=== PATIENT | male | born 1970 | race Two or more races ===

== ENCOUNTER 2016-03-15 23:21 | Observation (INO) | payer OTHER ==
[2016-03-16] MEDS ORDERED: ASPIRIN 81 MG CHEWABLE TABLETS PO ONE (00:13)
--- NOTE | 2016-03-16 00:13 | PDOC ---
History of Present Illness <Mikala,Beth - Last Filed: 03/16/16 00:27> <Chantell Casey - Last Filed: 03/16/16 01:49> - General Chief Complaint: Chest Pain Stated Complaint: CHEST PAIN Time Seen by Provider: 03/15/16 23:38 - History of Present Illness Initial Comments: 03/16/16 00:23 Patient is a 45 year old male with significant medical hx of HTN who is presenting to the ED with intermittent chest pressure and shortness of breath for one week. Patient reports his symptoms worsen with exertion, specifically when he walks up flights of stairs, and with inhalation. His chest pain radiates to his back and recently began radiating down his left arm. This morning the patient had three episodes of nausea and vomiting. The patient rates his pain 6/10 in severity at this time. Surgical Hx: Hernia repair, adenoids removed Social Hx: Never smoked. 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 (Beth Bach) Past History <MikalaBeth - Last Filed: 03/16/16 00:27> - Past Medical History HTN: Yes - Immunization History Immunization Up to Date: Yes - Psycho/Social/Smoking Cessation Hx Anxiety: No Suicidal Ideation: No Smoking History: Never smoked Number of Cigarettes Smoked Daily: 0 Information on smoking cessation initiated: No Hx Alcohol Use: No Drug/Substance Use Hx: No Substance Use Type: None <Chantell Casey - Last Filed: 03/16/16 01:49> - Past Medical History Allergies/Adverse Reactions: Allergies Allergy/AdvReac Type Severity Reaction Status Date / Time No Known Allergies Allergy Verified 03/15/16 23:23 Home Medications: Ambulatory Orders Ibuprofen [Motrin -] 600 mg PO TID #21 tablet 05/06/14 Review of Systems <Beth Bach - Last Filed: 03/16/16 00:27> <Chantell Casey - Last Filed: 03/16/16 01:49> - Review of Systems Comments:: 03/16/16 00:23 CONSTITUTIONAL: Absent: fever, chills, diaphoresis, generalized weakness, malaise, loss of appetite HEENT: Absent: rhinorrhea, nasal congestion, throat pain, throat swelling, difficulty swallowing, mouth swelling, ear pain, eye pain, visual changes CARDIOVASCULAR: Present: chest pain Absent: syncope, palpitations, irregular heart rate, lightheadedness, peripheral edema RESPIRATORY: Present: shortness of breath Absent: cough, dyspnea with exertion, orthopnea, wheezing, stridor, hemoptysis GASTROINTESTINAL: Present: nausea, vomiting Absent: abdominal pain, abdominal distension, diarrhea, constipation, melena, hematochezia GENITOURINARY: Absent: dysuria, frequency, urgency, hesitancy, hematuria, flank pain, genital pain MUSCULOSKELETAL: Absent: myalgia, arthralgia, joint swelling SKIN: Absent: rash, itching, pallor HEMATOLOGIC/IMMUNOLOGIC: Absent: easy bleeding, easy bruising, lymphadenopathy, frequent infections ENDOCRINE: Absent: unexplained weight gain, unexplained weight loss, heat intolerance, cold intolerance NEUROLOGIC: Absent: headache, focal weakness or paresthesia, dizziness, unsteady gait, seizure, mental status changes, bladder or bowel incontinence. PSYCHIATRIC: Absent: anxiety, depression, suicidal or homicidal ideation, hallucinations (Beth Bach) *Physical Exam <Beth Bach - Last Filed: 03/16/16 00:27> <Chantell Casey - Last Filed: 03/16/16 01:49> - Vital Signs Last Vital Signs Temp Pulse Resp BP Pulse Ox 97.9 F 62 14 129/66 97 03/15/16 23:24 03/15/16 23:24 03/15/16 23:24 03/15/16 23:24 03/15/16 23:24 - Physical Exam Comments: 03/16/16 00:25 GENERAL: Well developed, well nourished. Awake and alert. No acute distress. HEENT: Normocephalic, atraumatic. PERRLA, EOMI. No conjunctival pallor. Sclera are non- icteric. Moist mucous membranes. Oropharynx is clear. NECK: Supple. Full ROM. No JVD. Carotid pulses 2+ and symmetric, without bruits. No thyromegaly. No lymphadenopathy. CARDIOVASCULAR: Regular rate and rhythm. No murmurs, rubs, or gallops. Distal pulses are 2+ and symmetric. PULMONARY: No evidence of respiratory distress. Lungs clear to auscultation bilaterally. No wheezing, rales or rhonchi. ABDOMINAL: Soft. Non-tender. Non-distended. No rebound or guarding. No organomegaly. Normoactive bowel sounds. MUSCULOSKELETAL: Normal range of motion at all joints. No bony deformities or tenderness. No CVA tenderness. EXTREMITIES: No cyanosis. No clubbing. No edema. No calf tenderness. SKIN: Warm and dry. Normal capillary refill. No rashes. No jaundice. NEUROLOGICAL: Alert, awake, appropriate. Cranial nerves 2-12 intact. Normal speech. Gait is normal without ataxia. PSYCHIATRIC: Cooperative. Good eye contact. Appropriate mood and affect. (Beth Bach) Heart Score/ECG Review <Beth Bach - Last Filed: 03/16/16 00:27> - History History: Slightly suspicious - Electrocardiogram EKG: Normal - Age Age: </= 45 - Risk Factors Risk Factors Heart Score: Yes Hx Hypertension Based on the list above the patient has:: 1-2 risk factors - Troponin Troponin: </= normal limit - Score Heart Score - Total: 1 #1 Compared to previous ECG there are: Previous ECG unavail - ECG Intrepretation Rhythm: Regular Rhythm - ECG Impressions Normal ECG: Yes Bradycardia: Yes Torsades lucero Pointes: No WPW: No <Chantell Casey - Last Filed: 03/16/16 01:49> #1 03/16/16 00:27 Sinus bradycardia at 52 bpm Otherwise normal ECG (Beth Bach) ED Treatment Course - LABORATORY CBC & Chemistry Diagram: 03/16/16 00:20 03/16/16 00:20 <MikalaRehanBeth - Last Filed: 03/16/16 00:27> - LABORATORY CBC & Chemistry Diagram: 03/16/16 00:20 03/16/16 00:20 <Chantell Casey - Last Filed: 03/16/16 01:49> - ADDITIONAL ORDERS Additional order review: Laboratory Results 03/16/16 03/16/16 03/16/16 00:20 00:20 00:20 INR 0.99 Sodium 143 Potassium 3.9 Chloride 106 Carbon Dioxide 27 Anion Gap 10 BUN 16 Creatinine 1.1 Creat Clearance w eGFR > 60 Random Glucose 96 Calcium 8.6 Magnesium 2.1 Total Bilirubin 0.4 AST 14 L ALT 26 Alkaline Phosphatase 60 Creatine Kinase 328 H Creatine Kinase Index 0.6 CK-MB (CK-2) 2.046 CK-MB (CK-2) Rel Index Cancelled Troponin I < 0.02 Total Protein 6.7 Albumin 3.7 03/16/16 00:20 RBC 4.67 MCV 91.2 MCHC 34.1 RDW 13.2 MPV 11.0 Neutrophils % 43.4 Lymphocytes % 41.4 H Monocytes % 12.4 H Eosinophils % 2.0 Basophils % 0.8 - RADIOLOGY Radiology Studies Ordered: Category Date Time Status CHEST X-RAY PORTABLE* [RAD] Stat Radiology 03/16/16 00:17 Taken - Medications Given in the ED: ED Medications Discontinued Medications Generic Name Dose Route Start Last Admin Trade Name Steveq PRN Reason Stop Dose Admin Aspirin 162 mg 03/16/16 00:13 03/16/16 00:30 Asa - PO 03/16/16 00:14 162 mg ONCE ONE Administration Medical Decision Making <Beth Bach - Last Filed: 03/16/16 00:27> <Chantell Casey - Last Filed: 03/16/16 01:49> - Medical Decision Making 03/16/16 01:39 I've-year-old male with past medical history of hypertension, has been experiencing some chest pain recently, but today, much worse with numbness going down his left arm and was associated with palpitations and vomiting. 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, is , does not smoke tobacco EKG is sinus bradycardia at 52 bpm, inverted T waves in lead 3 First cardiac enzyme is negative (Chantell Casey) *DC/Admit/Observation/Transfer <Beth Bach - Last Filed: 03/16/16 00:27> - Discharge Dispostion Admit: Yes <Chantell Casey - Last Filed: 03/16/16 01:49> Diagnosis at time of Disposition: Chest pain Qualifiers: Chest pain type: precordial chest pain Qualified Code(s): R07.2 - Precordial pain - Referrals Referrals: STAFF,NOT ON [Primary Care Provider] - - Attestations Scribe Attestion: 03/16/16 00:25 Documentation prepared by Beth Bach, acting as manager medical affairs for Chantell Casey MD. (Beth Bach)
[2016-03-16] MEDS ORDERED: ASPIRIN 81 MG CHEWABLE TABLETS ONE (00:21)
[2016-03-16 00:40] LABS: BASOPHIL 0.8 % (0-2.0); MCH 31.1 pg (25.7-33.7); MCHC 34.1 g/dl (32.0-35.9); MEAN CELL VOLUME 91.2 fl (80-96); NEUTROPHILS 43.4 % (42.8-82.8); PLATELET COUNT 130 K/MM3 (134-434); RDW 13.2 % (11.9-15.9); WHITE BLOOD COUNT 5.7 K/mm3 (4.0-10.0)
[2016-03-16 01:06] LABS: ALBUMIN 3.7 g/dl (3.4-5.0); ANION GAP 10 (8-16); BILIRUBIN,TOTAL 0.4 mg/dL (0.2-1.0); CALCIUM 8.6 mg/dL (8.5-10.1); CO2 27 mmol/L (21-32); CREATININE 1.1 mg/dL (0.7-1.3); GLUCOSE,RANDOM 96 mg/dL (74-106); MAGNESIUM 2.1 mg/dL (1.8-2.4); SGOT/AST 14 U/L (15-37); SGPT/ALT 26 U/L (12-78); TOT PROT 6.7 g/dl (6.4-8.2)
[2016-03-16 01:09] LABS: ALK PHOS 60 U/L (45-117); TROPONIN I < 0.02 ng/ml (0.00-0.05)
[2016-03-16 01:10] LABS: INR 0.99 (0.82-1.09); PROTHROMBIN TIME (PATIENT) 10.9 SEC (9.98-11.88)
--- NOTE | 2016-03-16 01:50 | PN ---
Teaching Attending Note Name of Resident: Marianne Siddiqui ATTENDING PHYSICIAN STATEMENT I saw and evaluated the patient. I reviewed the resident's note and discussed the case with the resident. I agree with the resident's findings and plan as documented. SUBJECTIVE: 45 M with hx of HTN who presents with chest pain/palpitations for past 3 days and l. arm pain. Also ass. SOB with Palpitations. States that he has had intermittent chest pain, radiating to his left arm. No current chest pain, pressure, or shortness of breath. Notes Palpitations and SOB also happens when he is at rest. No recent fevers, chills or n/v/d. OBJECTIVE: Physical: VS: Vital Signs Period Temp Pulse Resp BP Sys/Regalado Pulse Ox Last 24 Hr 97.9 F 62 14 129/66 97 GEN: Middle Aged Male resting in bed in NAD HEENT:NCAT, PERRL CARD: RRR S1, S2 RESP:CTAB ABD: BSx4 EXT: - C/C/E CBCD WBC 5.7 K/mm3 (4.0-10.0) 03/16/16 00:20 RBC 4.67 M/mm3 (4.00-5.60) 03/16/16 00:20 Hgb 14.5 GM/dL (11.7-16.9) 03/16/16 00:20 Hct 42.6 % (35.4-49) 03/16/16 00:20 MCV 91.2 fl (80-96) 03/16/16 00:20 MCHC 34.1 g/dl (32.0-35.9) 03/16/16 00:20 RDW 13.2 % (11.9-15.9) 03/16/16 00:20 Plt Count 130 K/MM3 (134-434) L 03/16/16 00:20 MPV 11.0 fl (7.5-11.1) 03/16/16 00:20 CMP Sodium 143 mmol/L (136-145) 03/16/16 00:20 Potassium 3.9 mmol/L (3.5-5.1) 03/16/16 00:20 Chloride 106 mmol/L (98-107) 03/16/16 00:20 Carbon Dioxide 27 mmol/L (21-32) 03/16/16 00:20 Anion Gap 10 (8-16) 03/16/16 00:20 BUN 16 mg/dL (7-18) 03/16/16 00:20 Creatinine 1.1 mg/dL (0.7-1.3) 03/16/16 00:20 Creat Clearance w eGFR > 60 (>60) 03/16/16 00:20 Random Glucose 96 mg/dL (74-106) 03/16/16 00:20 Calcium 8.6 mg/dL (8.5-10.1) 03/16/16 00:20 Total Bilirubin 0.4 mg/dL (0.2-1.0) 03/16/16 00:20 AST 14 U/L (15-37) L 03/16/16 00:20 ALT 26 U/L (12-78) 03/16/16 00:20 Alkaline Phosphatase 60 U/L (45-117) 03/16/16 00:20 Total Protein 6.7 g/dl (6.4-8.2) 03/16/16 00:20 Albumin 3.7 g/dl (3.4-5.0) 03/16/16 00:20 CARDIAC ENZYMES Creatine Kinase 328 IU/L (39-308) H 03/16/16 00:20 Troponin I < 0.02 ng/ml (0.00-0.05) 03/16/16 00:20 Ambulatory Orders Losartan/Hydrochlorothiazide [Losartan-Hctz 50-12.5 mg Tab] 1 each PO DAILY EKG: S OTTO, No acute St-T changes CXR: Mild Cardiomegaly, increased Vascularization ASSESSMENT AND PLAN: 45 M with pmhx of HTN presents with Chest Pain 1.) Chest Pain - Heart Score 3 - Trend Trop/EKG - ASA - 02 2L NC - Nitro/Morphine prn CP 2.) Palpitations/SOB - Chk. Echo 2.) HTN - C/W Home Meds 3.) Dvt Ppx - Ambulate- Low Risk Placr in Obs-Tele
--- NOTE | 2016-03-16 01:50 | HP ---
CHIEF COMPLAINT: Palpitations with shortness of breath PCP: Not on Staff HISTORY OF PRESENT ILLNESS: Patient is a 45 year old male with a PMHx of HTN who presented today complaining of palpitations and midsternal chest pain/pressure that began three days ago and worsened in the last 24 hours. Patient reports the palpitations are there most of the time and worsens when he is laying down associated with shortness of breath. Patient states the shortness of breath only happens when he is having palpitations. Patient also reports the midsternal chest pain is a more of pressure like feeling that is constant and occurs a few times a day radiating to the left arm. Patient also reports he had one episode of nonbloody nonbilious vomiting today when he was having palpitations, which prompted this ED visit. Patient denies any anxiety and severe stress factors that might elicit these symptoms. Otherwise, patient denies fever, chills, abdominal pain , dizziness, headache, dysuria, hematuria. ER course was notable for: (1) ASA 161mg (2) Chest X-ray (3) EKG Recent Travel: Denies PAST MEDICAL HISTORY: HTN PAST SURGICAL HISTORY: Tonsillectomy, Hernia repair Social History: Smoking: Denies Alcohol: Occasionally Drugs: Drugs Family History: Mother- Diabetes, HTN, and Renal Failure Allergies: No Known Allergies Allergy (Verified 03/15/16 23:23) HOME MEDICATIONS: Medication Instructions Recorded Losartan/Hydrochlorothiazide 1 each PO DAILY 03/16/16 [Losartan-Hctz 50-12.5 mg Tab] REVIEW OF SYSTEMS CONSTITUTIONAL: Absent: fever, chills, diaphoresis, generalized weakness, malaise, loss of appetite, weight change HEENT: Absent: rhinorrhea, nasal congestion, throat pain, throat swelling, difficulty swallowing, mouth swelling, ear pain, eye pain, visual changes CARDIOVASCULAR: palpitations Absent: chest pain, syncope, irregular heart rate, lightheadedness, peripheral edema RESPIRATORY: shortness of breath Absent: cough, dyspnea with exertion, orthopnea, wheezing, stridor, hemoptysis GASTROINTESTINAL: vomiting Absent: abdominal pain, abdominal distension, nausea, diarrhea, constipation, melena, hematochezia GENITOURINARY: Absent: dysuria, frequency, urgency, hesitancy, hematuria, flank pain, genital pain MUSCULOSKELETAL: Left arm weakness Absent: myalgia, arthralgia, joint swelling, back pain, neck pain SKIN: Absent: rash, itching, pallor HEMATOLOGIC/IMMUNOLOGIC: Absent: easy bleeding, easy bruising, lymphadenopathy, frequent infections ENDOCRINE: Absent: unexplained weight gain, unexplained weight loss, heat intolerance, cold intolerance NEUROLOGIC: Absent: headache, focal weakness or paresthesias, dizziness, unsteady gait, seizure, mental status changes, bladder or bowel incontinence PSYCHIATRIC: Absent: anxiety, depression, suicidal or homicidal ideation, hallucinations. PHYSICAL EXAMINATION Vital Signs - 24 hr 03/15/16 23:24 Temperature 97.9 F Pulse Rate 62 Respiratory 14 Rate Blood Pressure 129/66 O2 Sat by Pulse 97 Oximetry (%) GENERAL: Awake, alert, and fully oriented, in no acute distress. HEAD: Normal with no signs of trauma. EYES: Pupils equal, round and reactive to light, extraocular movements intact, sclera anicteric, conjunctiva clear. No lid lag. EARS, NOSE, THROAT: Ears normal, nares patent, oropharynx clear without exudates. Moist mucous membranes. NECK: Normal range of motion, supple without lymphadenopathy, JVD, or masses. LUNGS: Breath sounds equal, clear to auscultation bilaterally. No wheezes, and no crackles. No accessory muscle use. HEART: Bradycardia with regular rhythm, normal S1 and S2 without murmur, rub or gallop. ABDOMEN: Soft, nontender, not distended, normoactive bowel sounds, no guarding, no rebound, no masses. No hepatomegaly or splenomegaly. MUSCULOSKELETAL: Normal range of motion at all joints. No bony deformities or tenderness. No CVA tenderness. EXTREMITIES: No calf tenderness. No peripheral edema. NEUROLOGICAL: No focal deficits. Normal speech. PSYCHIATRIC: Cooperative. Good eye contact. Appropriate mood and affect. SKIN: Warm, dry, normal turgor, no rashes or lesions noted. Laboratory Results - last 24 hr 03/16/16 03/16/16 03/16/16 00:20 00:20 00:20 WBC 5.7 RBC 4.67 Hgb 14.5 Hct 42.6 MCV 91.2 MCHC 34.1 RDW 13.2 Plt Count 130 L MPV 11.0 Neutrophils % 43.4 Lymphocytes % 41.4 H Monocytes % 12.4 H Eosinophils % 2.0 Basophils % 0.8 INR 0.99 Sodium 143 Potassium 3.9 Chloride 106 Carbon Dioxide 27 Anion Gap 10 BUN 16 Creatinine 1.1 Creat Clearance w eGFR > 60 Random Glucose 96 Calcium 8.6 Magnesium 2.1 Total Bilirubin 0.4 AST 14 L ALT 26 Alkaline Phosphatase 60 Creatine Kinase 328 H Creatine Kinase Index 0.6 CK-MB (CK-2) 2.046 CK-MB (CK-2) Rel Index Troponin I < 0.02 Total Protein 6.7 Albumin 3.7 03/16/16 00:20 WBC RBC Hgb Hct MCV MCHC RDW Plt Count MPV Neutrophils % Lymphocytes % Monocytes % Eosinophils % Basophils % INR Sodium Potassium Chloride Carbon Dioxide Anion Gap BUN Creatinine Creat Clearance w eGFR Random Glucose Calcium Magnesium Total Bilirubin AST ALT Alkaline Phosphatase Creatine Kinase Creatine Kinase Index CK-MB (CK-2) CK-MB (CK-2) Rel Index Cancelled Troponin I Total Protein Albumin EKG: Sinus Bradycardia @52 BPM, (-)ST-T changes Chest X-ray: Mild cardiomegaly with increased pulmonary markings. ASSESSMENT/PLAN: Patient is a 45 year old male with a PMHx of HTN who presents for palpitations, shortness of breath, and left arm weakness. Patient found to have bradycardia on EKG and slightly elevated CK level. Patient admitted to telemetry for further monitoring and management. Chest Pain -Heart score: 3 -Elevated CK. negative troponin x1. Repeat cardiac profile in the morning -ASA 81 daily -Continue 2L 02 -Cardiac monitoring -ECHO ordered -Lipid panel ordered -Morphine and Nitroglycerin for pain Palpitations with Shortness of Breath -EKG revealed bradycardia -TSH ordered -Repeat EKG -ECHO ordered -Continuous cardiac monitoring HTN -Continue with Losartan 50/12.5mg daily -Continue to monitor BP F/E/N -On no fluids -Electrolytes wnl -Sodium controlled diet Prophylaxis -Low risk, patient is able to ambulate. SCD's DVT -No GI needed Disposition -Full code -Admitted to Telemetry. Will repeat troponins. Visit type - Emergency Visit Emergency Visit: Yes ED Registration Date: 03/16/16 Care time: The patient presented to the Emergency Department on the above date and was hospitalized for further evaluation of their emergent condition. - New Patient This patient is new to me today: Yes Date on this admission: 03/16/16 - Critical Care Critical Care patient: No
[2016-03-16 07:11] LABS: CHOLESTEROL 186 mg/dL (50-200); LDL CHOLESTEROL (ONLY SJRH) 126 mg/dL (5-100)
[2016-03-16 07:13] LABS: TROPONIN I < 0.02 ng/ml (0.00-0.05)
[2016-03-16] MEDS ORDERED: LOSARTAN 50MG/HCTZ 12.5MG 1 TAB (FP) PO SCH (10:00)
[2016-03-16] MEDS ORDERED: ASPIRIN 81 MG CHEWABLE TABLETS PO SCH (10:00)
[2016-03-16 10:45] VITALS: BMI 34.7
--- NOTE | 2016-03-16 13:13 | PN ---
Teaching Attending Note Name of Resident: Rocio Scott ATTENDING PHYSICIAN STATEMENT I saw and evaluated the patient. I reviewed the resident's note and discussed the case with the resident. I agree with the resident's findings and plan as documented. SUBJECTIVE: sifter operator phone was used . no fever or chills, no fever , no CP or palpitations at this time. reports havinf papitaitons on and off , on exertionand at rest, if exertion is stopped he will fell better. they last fro 2 min . Reports SOB and L upper arm with these episodes , also a feeling of fear. 1 week before presentation , he never had CP or palpitations . He had stress test 1.5 yr ago before hernia sx . OBJECTIVE: NAD , AAOx3 CV: RRR, no MRG Lunsg : CTAB ext : no edema R pulse 2+ b/l EKG : sinus rhythm, with TWI in inferior leads , with no prior to compare to . no ST changes . NSR, NL axis ASSESSMENT AND PLAN: 45 y/o man with no significant PMH who presneted with 1 week history of recurrent palpitations, L arm and chest pain and SOB . 1- Symptoms of CP, Arm pain, palpitations: in DDX include arrhythmias and anxiety. The fact that he has TWI in inferior leads and L arm pain , ACS needs to be r/o . we have no Previous EKG to compare to. trop x 2 NL . Stable VS - Contact his medical record librarian , Dr. Barney , to obtain previous EKG and Stress reports . - Place on tele - Echo pending - Repeat EKG and third trop - If previous stress test is NL and previous EKG shows same inferior TWI , hold off any stress test. Otherwise , will order a stress test - will need out pt holter placed plan was d/w pt
[2016-03-16 14:19] LABS: TROPONIN I < 0.02 ng/ml (0.00-0.05)
--- NOTE | 2016-03-16 14:43 | DS ---
Physical Exam: SUBJECTIVE: Patient seen and examined today in AM. He is complaining of mild SOB. Denies chest pain, cough, palpitations, abdominal pain, N/V, diarrhea, numbness, paresthesias in LUE. OBJECTIVE: Vital Signs Period Temp Pulse Resp BP Sys/Regalado Pulse Ox Last 24 Hr 97.8 F-98 F 52-55 18-18 133-138/86-86 99-99 PHYSICAL EXAM GENERAL: The patient is awake, alert, and fully oriented, in no acute distress. HEAD: Normal with no signs of trauma. EYES: PERRL, extraocular movements intact, sclera anicteric, conjunctiva clear. ENT: oropharynx clear without exudates, moist mucous membranes. NECK: Trachea midline, full range of motion, supple. LUNGS: Breath sounds equal, clear to auscultation bilaterally, no wheezes, no crackles, no accessory muscle use. HEART: Regular rate and rhythm, S1, S2 without murmur, rub or gallop. ABDOMEN: Soft, nontender, nondistended, normoactive bowel sounds, no guarding, no rebound, no hepatosplenomegaly, no masses. EXTREMITIES: warm, well-perfused, no edema. NEUROLOGICAL: Cranial nerves II through XII grossly intact. Normal speech, gait not observed. PSYCH: Normal mood, normal affect. SKIN: Warm, dry, normal turgor, no rashes or lesions noted. LABS Laboratory Results - last 24 hr 03/16/16 03/16/16 03/16/16 06:25 06:25 06:25 Creatine Kinase 255 D CK-MB (CK-2) Rel Index Cancelled Troponin I < 0.02 Triglycerides 131 Cholesterol 186 Total LDL Cholesterol 126 H HDL Cholesterol 53 TSH 1.04 03/16/16 13:37 Creatine Kinase 230 CK-MB (CK-2) Rel Index Troponin I < 0.02 Triglycerides Cholesterol Total LDL Cholesterol HDL Cholesterol TSH HOSPITAL COURSE: Date of Admission:03/16/16 Date of Discharge: 03/16/16 Minutes to complete discharge: 45 Discharge Summary Reason For Visit: CHEST PAIN Current Active Problems Chest pain (Acute) Hospital Course: Patient is a 45 year old male with a PMHx of HTN who presented today complaining of left arm pain, SOB and palpitations that began three days ago and worsened in the last 24 hours.The patient reports the palpitations are associated with SOB and being scared. He has several episodes a day lasting about a minute. Patient also reports he had one episode of nonbloody nonbilious vomiting today when he was having palpitations, which prompted this ED visit. Patient denies any anxiety and severe stress factors that might elicit these symptoms. Otherwise, patient denies fever, chills, chest pain, abdominal pain, dizziness, headache, dysuria, LOC, balance problems, problems with vision, sensation changes in LUE, numbness and paresthesias. Hospital course; The pt was placed on observation for left upper extremity pain , palpitations, SOB r/o ACS. We trended his troponinsx3. The results were negative. His CK was elevated, next one was nl, TSH nl. His CXR was nl and EKG showed sinus bradycardia, TWI in inferior leads. We started Aspirin, Oxygen Supplementation. Ordered ECHO, lipid panel, cardiac monitoring, Morphine and NTG for pain. We called his Rivet Maker, Dr Jackson Vera and recommend to visit him tomorrow for f/u. We also recommend Holter monitoring as outpatient. Condition: Improved - Instructions Diet, Activity, Other Instructions: Please see your PCP in a week. Visit Dr. Paz tomorrow. YOu might need HOlter monitor placed Take your medications everyday. If you have chest pain, palpitations, dizziness, loss of consciousness, bleeding come to Emergency Room as soon as possible. Referrals: STAFF,NOT ON [Primary Care Provider] - 1 Week (Andrews Shaffer MD [phone]) Disposition: HOME - Home Medications Comprehensive Discharge Medication List: Ambulatory Orders Losartan/Hydrochlorothiazide [Losartan-Hctz 50-12.5 mg Tab] 1 each PO DAILY Problem List - Problems (1) Pain In Left Arm Code(s): M79.602 - PAIN IN LEFT ARM (2) Shortness of breath Code(s): R06.02 - SHORTNESS OF BREATH (3) Palpitations Code(s): R00.2 - PALPITATIONS (4) Hypertension Code(s): I10 - ESSENTIAL (PRIMARY) HYPERTENSION This patient is new to me today: Yes Date on this admission: 03/16/16 Emergency Visit: Yes ED Registration Date: 03/16/16 Care time: The patient presented to the Emergency Department on the above date and was hospitalized for further evaluation of their emergent condition. Critical Care patient: No - Discharge Referral Referred to [facility] No
[2016-03-16 17:05] VITALS: BP 121/89; PULSE 83; TEMP 98.4
--- NOTE | 2016-03-16 23:10 | EKG ---
Test Reason : Blood Pressure : / mmHG Vent. Rate : 067 BPM Atrial Rate : 067 BPM P-R Int : 178 ms QRS Dur : 092 ms QT Int : 400 ms P-R-T Axes : 036 025 008 degrees QTc Int : 422 ms NORMAL SINUS RHYTHM WITH SINUS ARRHYTHMIA NORMAL ECG WHEN COMPARED WITH ECG OF 16-MAR-2016 00:24, NO SIGNIFICANT CHANGE WAS FOUND Confirmed by DANNY NELSON MD ([id number]) on 03/16/2016 11:10:21 PM Referred By: Confirmed By:DANNY NELSON MD
--- NOTE | 2016-03-16 23:20 | EKG ---
Test Reason : Blood Pressure : / mmHG Vent. Rate : 052 BPM Atrial Rate : 052 BPM P-R Int : 184 ms QRS Dur : 090 ms QT Int : 422 ms P-R-T Axes : 036 020 001 degrees QTc Int : 392 ms SINUS BRADYCARDIA OTHERWISE NORMAL ECG NO PREVIOUS ECGS AVAILABLE Confirmed by DANNY NELSON MD ([id number]) on 03/16/2016 11:20:08 PM Referred By: Confirmed By:DANNY NELSON MD
== END 2016-03-16 17:00 | disposition home or self-care (01) ==
LOC: JER 23:21 → JERBED 03-16 01:50
PROVIDERS: ADMIT Internal Medicine; ATTEND Internal Medicine
DX: R07.89 Other chest pain (principal); I10 Essential (primary) hypertension; M79.602 Pain in left arm; R00.2 Palpitations; R00.1 Bradycardia, unspecified
CPT/HCPCS: 36415; 71010-TC; 80053; 80061; 82550; 82553; 83721; 83735; 84443; 84484; 85025; 85610; 93005; 93010; 93306-TC; 99285-25; G0378

== ENCOUNTER 2017-12-06 15:31 | Emergency (ER) | payer OTHER ==
[2017-12-06] MEDS ORDERED: ONDANSETRON *ODT* 4 MG TABLET SL ONE (15:47)
[2017-12-06 15:49] VITALS: BMI 35.5
--- NOTE | 2017-12-06 15:52 | PDOC ---
Rapid Medical Evaluation Chief Complaint: Lightheaded Time Seen by Provider: 12/06/17 15:49 Medical Evaluation: Allergies Allergy/AdvReac Type Severity Reaction Status Date / Time shellfish derived Allergy Severe Swelling Verified 12/06/17 15:39 No Known Drug Allergies Allergy Verified 03/16/16 07:35 12/06/17 15:49 I have performed a brief in-person evaluation of this patient. The patient presents with a chief complaint of: dizziness , nausea, and MAYEN s/p fall down stairs hitting back of head. no LOC Pertinent physical exam findings: moderate swelling to occiput of head. A&O x 3. no open wound I have ordered the following: zofran. head CT w/o contrast The patient will proceed to the ED for further evaluation. Discharge Disposition - Diagnosis Head injury Qualifiers: Encounter type: initial encounter Qualified Code(s): S09.90XA - Unspecified injury of head, initial encounter - Referrals - Patient Instructions - Post Discharge Activity
[2017-12-06] MEDS ORDERED: ONDANSETRON *ODT* 4 MG TABLET ONE (16:05)
--- NOTE | 2017-12-06 16:16 | PDOC ---
History of Present Illness - General Chief Complaint: Lightheaded Stated Complaint: Headache Time Seen by Provider: 12/06/17 15:49 History Source: Patient Exam Limitations: No Limitations - History of Present Illness Initial Comments: 12/06/17 16:01 46-year-old male with history of hypertension presents to the ED but complaints of closed head injury. Patient states was walking up steps when he missed the last step causing to fall backwards down approximately 9 steps. Patient states had no LOC was ample toward the scene but now complaining of bump to the back of his right had along throbbing discomfort to the area. Patient also complaining of mild nausea without visual changes, neck pain, chest pain, shortness of breath, or dizziness Occurred: reports: just prior to arrival Severity: reports: mild Pain Location: reports: head Method of Injury: Yes: direct blow, fall Modifying Factors: improves with: None Loss of Consciousness: no loss of consciousness Associated Symptoms (Fall): headache, nausea/vomiting (nausea) Past History - Travel Traveled outside of the country in the last 30 days: No - Past Medical History Allergies/Adverse Reactions: Allergies Allergy/AdvReac Type Severity Reaction Status Date / Time shellfish derived Allergy Severe Swelling Verified 12/06/17 15:39 No Known Drug Allergies Allergy Verified 03/16/16 07:35 Home Medications: Ambulatory Orders Losartan/Hydrochlorothiazide [Losartan-Hctz 50-12.5 mg Tab] 1 each PO DAILY COPD: No HTN: Yes - Immunization History Immunization Up to Date: Yes - Suicide/Smoking/Psychosocial Hx Smoking History: Never smoked Number of Cigarettes Smoked Daily: 0 Hx Alcohol Use: No Drug/Substance Use Hx: No Substance Use Type: None Patient Lives Alone: No Lives with/in: spouse/SO Review of Systems - Review of Systems Able to Perform ROS?: Yes Constitutional: No: Symptoms Reported HEENTM: No: Symptoms Reported Respiratory: No: Symptoms reported Cardiac (ROS): No: Symptoms Reported ABD/GI: Yes: Nausea Musculoskeletal: No: Symptoms Reported Integumentary: Yes: Lumps Neurological: Yes: Headache. No: Weakness, Dizziness Hematologic/Lymphatic: No: Symptoms Reported *Physical Exam - Vital Signs Last Vital Signs Temp Pulse Resp BP Pulse Ox 98.6 F 69 20 121/69 85 L 12/06/17 15:39 12/06/17 15:39 12/06/17 15:39 12/06/17 15:39 12/06/17 15:39 - Physical Exam General Appearance: Yes: Nourished, Appropriately Dressed. No: Apparent Distress HEENT: positive: EOMI, DELGADO, TMs Normal ( no hemotympanum) Neck: positive: Supple. negative: Decreased range of motion, Tender midline Respiratory/Chest: positive: Lungs Clear, Normal Breath Sounds. negative: Chest Tender, Respiratory Distress, Accessory Muscle Use Cardiovascular: positive: Regular Rhythm, Regular Rate. negative: Murmur Gastrointestinal/Abdominal: positive: Soft. negative: Tenderness Extremity: positive: Normal Capillary Refill Integumentary: positive: Normal Color, Warm, Swelling (right occipital hematoma) Neurologic: positive: sawyer cork slabs II-XII NML intact, Normal Mood/Affect, Motor Strength 5/5 (ambulatory). negative: Sensory Deficit Heart Score/ECG Review - ECG Intrepretation Rhythm: Regular Rhythm (rate 85. sinus rhythm with PVC) Medical Decision Making - Medical Decision Making 12/06/17 16:06 chief complaint: Closed head injury down 9 steps now with nausea and headache. Exam: Noted soft tender hematoma to the right occipital, no cervical tenderness Plan: EKG, Zofran and head CT 12/06/17 16:48 Patient states any better after receiving Zofran complaining of headache. Patient offered Tylenol. Head CT negative for acute pathology. Will give patient concussion precautions *DC/Admit/Observation/Transfer Diagnosis at time of Disposition: Head injury Qualifiers: Encounter type: initial encounter Qualified Code(s): S09.90XA - Unspecified injury of head, initial encounter - Discharge Dispostion Disposition: HOME Condition at time of disposition: Good - Referrals - Patient Instructions Printed Discharge Instructions: DI for Closed Head Injury, DI for Concussion Additional Instructions: Take Tylenol 975 every 8 hours for headache. If you develop difficulty ambulating, on coordinated movements, projectile vomiting visual changes, or weakness, please return to the ED immediately. please otherwise read over instructions on concussion to avoid certain activities that may cause more harm over the next week - Post Discharge Activity
[2017-12-06] MEDS ORDERED: ACETAMINOPHEN 500 MG TABLET (FP) PO ONE (16:52)
[2017-12-06] MEDS ORDERED: ACETAMINOPHEN 325 MG TABLET (FP) ONE (16:57)
[2017-12-06 17:07] VITALS: BP 107/66; PULSE 73; TEMP 97.6
--- NOTE | 2017-12-07 15:19 | EKG ---
Test Reason : Blood Pressure : / mmHG Vent. Rate : 085 BPM Atrial Rate : 070 BPM P-R Int : 156 ms QRS Dur : 092 ms QT Int : 382 ms P-R-T Axes : 033 024 023 degrees QTc Int : 454 ms SINUS RHYTHM WITH FREQUENT PREMATURE VENTRICULAR COMPLEXES NONSPECIFIC T WAVE ABNORMALITY ABNORMAL ECG WHEN COMPARED WITH ECG OF 16-MAR-2016 15:24, PREMATURE VENTRICULAR COMPLEXES ARE NOW PRESENT NONSPECIFIC T WAVE ABNORMALITY NOW EVIDENT IN LATERAL LEADS Confirmed by ANEL ROSS, PHOEBE ([id number]) on 12/07/2017 3:19:20 PM Referred By: Confirmed By:PHOEBE TAM MD
== END 2017-12-06 17:08 | disposition home or self-care (01) ==
LOC: JER 15:31
DX: S00.83XA Contusion of other part of head, initial encounter (principal); W10.8XXA Fall (on) (from) other stairs and steps, initial encounter; Y93.89 Activity, other specified; Y92.89 Other specified places as the place of occurrence of the external cause; Y99.8 Other external cause status; I10 Essential (primary) hypertension
CPT/HCPCS: 70450-TC; 93005; 93010; 99283-25; Q0162

== ENCOUNTER 2020-10-29 19:41 | Emergency (ER) | payer OTHER ==
[2020-10-29 19:50] VITALS: BP 116/78; PULSE 93; TEMP 99.2; BMI 35.5
[2020-10-29] MEDS ORDERED: BACITRACIN 15 GM TUBE TOPICAL OINTMENT TP ONE (21:08)
[2020-10-29] MEDS ORDERED: TETANUS AND DIPHTHERIA TOXOID 0.5 ML DISP.SYRIN IM ONE (21:08)
[2020-10-29] MEDS ORDERED: BACITRACIN 15 GM TUBE TOPICAL OINTMENT ONE (21:27)
[2020-10-29] MEDS ORDERED: DIPHTH,PERTUSS(ACELL),TET 0.5 ML DISP.SYRIN IM ONE ×2 (21:28→21:29)
== END 2020-10-29 21:40 | disposition home or self-care (01) ==
LOC: JER 19:41 → JERFT 19:41
PROC: 3E0234Z Introduction of Serum, Toxoid and Vaccine into Muscle, Percutaneous Approach (ICD-10-PCS; principal; 2020-10-29)
DX: S61.213A Laceration without foreign body of left middle finger without damage to nail, initial encounter (principal); W26.0XXA Contact with knife, initial encounter; Y93.G3 Activity, cooking and baking
CPT/HCPCS: 90471; 90715; 99284-25

== ENCOUNTER 2024-07-11 21:09 | Emergency (ER) | payer OTHER ==
[2024-07-11 21:17] VITALS: BP 131/90; PULSE 58; RESP 18; TEMP 97.9; BMI 31.4
[2024-07-11] MEDS ORDERED: ACETAMINOPHEN INJECTION 100 ML ONE (22:03)
[2024-07-11] MEDS: SODIUM CHLORIDE 0.9% 500 ML INFUS.BAG IV ONE (22:33)
[2024-07-11] MEDS: ACETAMINOPHEN 1000 MG/100 ML BAG IVPB ONE (22:34)
[2024-07-11 22:37] LABS: MEAN PLT VOLUME 11.6 fl (9.4-12.4); RDW 14.2 % (12.2-16.1)
[2024-07-11 22:39] LABS: ABSOLUTE IMMATURE GRANULOCYTES 0.01 x10^3/uL (0.0-0.031); BASOPHILS # 0.05 x10^3/uL (0.01-0.08); EOSINOPHILS # 0.07 x10^3/uL (0.04-0.54); HEMATOCRIT 38.1 % (40.1-51.0); HEMOGLOBIN 12.7 g/dL (13.7-17.5); MCHC 33.3 g/dl (32.3-36.5); MEAN CELL VOLUME 94.3 fl (79.0-92.2); MONOCYTE # 0.72 x10^3/uL (0.30-0.82); PLATELET COUNT 115 x10^3/uL (163-337)
[2024-07-11 22:59] LABS: POTASSIUM 3.4 mmol/L (3.5-5.1)
[2024-07-12 00:06] LABS: ALBUMIN 3.4 g/dl (3.4-5.0); BLOOD UREA NITROGEN 16.6 mg/dL (7-18); CALCIUM 8.7 mg/dL (8.5-10.1)
[2024-07-12 00:09] LABS: CREATININE 0.9 mg/dL (0.55-1.3)
[2024-07-12 00:11] LABS: BILIRUBIN,TOTAL 0.7 mg/dL (0.2-1)
[2024-07-12] MEDS ORDERED: METHOCARBAMOL 500 MG TABLET ONE (01:00)
[2024-07-12] MEDS: METHOCARBAMOL 500 MG TABLET PO ONE (01:04)
== END 2024-07-12 01:15 | disposition home or self-care (01) ==
LOC: JER 21:09
PROC: 3E033NZ Introduction of Analgesics, Hypnotics, Sedatives into Peripheral Vein, Percutaneous Approach (ICD-10-PCS; principal; 2024-07-11)
DX: R10.31 Right lower quadrant pain (principal)
CPT/HCPCS: 0241U-QW; 36415; 71045-TC-FY; 80053; 84484; 85025; 99284-25; J0131